=== PATIENT | female | born 1985 ===

== ENCOUNTER 2022-10-30 13:48 | Outpatient (CLI) | payer OTHER ==
[~2022-10-30 13:48] MED LIST: Micronase PO; Vistaryl PO
== END 2022-10-30 14:57 | disposition home or self-care (01) ==
LOC: PRENATAL 13:48
PROVIDERS: ATTEND Obstetrics & Gynecology Maternal & Fetal Medicine
DX: O36.80X0 Pregnancy with inconclusive fetal viability, not applicable or unspecified (principal); Z3A.14 14 weeks gestation of pregnancy

== ENCOUNTER 2022-12-20 10:13 | Outpatient (CLI) | payer OTHER | END 2022-12-20 11:45 | disposition home or self-care (01) | LOC: PRENATAL 10:13 | PROVIDERS: ATTEND Obstetrics & Gynecology Maternal & Fetal Medicine | DX: O35.3XX0 Maternal care for (suspected) damage to fetus from viral disease in mother, not applicable or unspecified (principal); O35.9XX0 Maternal care for (suspected) fetal abnormality and damage, unspecified, not applicable or unspecified; O09.219 Supervision of pregnancy with history of pre-term labor, unspecified trimester; Z3A.22 22 weeks gestation of pregnancy ==

== ENCOUNTER 2023-02-26 04:39 | Inpatient (IN) | payer OTHER ==
[~2023-02-26] VITALS: Ht 152.4 cm; Wt 1.4 kg
[2023-02-26] MEDS ORDERED: MAXFE CAPLET1 EAC1 PO (07:15)
[2023-02-27] MEDS ORDERED: HYDROXYZINE PAM50 MG (10:12)
[2023-02-27] MEDS ORDERED: AZELASTIN-FLUTI23 GM (10:12)
== END 2023-03-14 18:53 | disposition home or self-care (01) | DRG 783 ==
LOC: LDR 04:39 → OB/GYN 03-11 16:51
PROVIDERS: ADMIT Student in an Organized Health Care Education/Training Program; ATTEND Student in an Organized Health Care Education/Training Program
PROC: 4A1HXCZ Monitoring of Products of Conception, Cardiac Rate, External Approach (ICD-10-PCS; 2023-02-26)
PROC: BY4FZZZ Ultrasonography of Third Trimester, Single Fetus (ICD-10-PCS; 2023-03-05)
PROC: 0UB70ZZ Excision of Bilateral Fallopian Tubes, Open Approach (ICD-10-PCS; 2023-03-11)
PROC: 10D00Z1 Extraction of Products of Conception, Low, Open Approach (ICD-10-PCS; principal; 2023-03-11 14:00)
DX: O36.8130 Decreased fetal movements, third trimester, not applicable or unspecified (principal); O60.14X0 Preterm labor third trimester with preterm delivery third trimester, not applicable or unspecified; O99.02 Anemia complicating childbirth; D64.9 Anemia, unspecified; O24.420 Gestational diabetes mellitus in childbirth, diet controlled; O42.113 Preterm premature rupture of membranes, onset of labor more than 24 hours following rupture, third trimester; O36.5930 Maternal care for other known or suspected poor fetal growth, third trimester, not applicable or unspecified; Z3A.31 31 weeks gestation of pregnancy; Z37.0 Single live birth; Z20.822 Contact with and (suspected) exposure to COVID-19; Z30.2 Encounter for sterilization